=== PATIENT | male | born 1945 | race Caucasian/White ===

== ENCOUNTER → 2021-03-01 | Outpatient (CLI) | payer OTHER ==
[~2021-03-01] MED LIST: ASPIRIN325 PO; CELEBREX 200 M200 M1 PO; CO-ENZYME Q-1010 MG PO; GINKGO BILOBA500 MG PO; LASIX 40 MG TAB40 MG PO; LISINOPRIL20 MG PO; MULTI VITAMIN1 EACH PO; NORVASC5 MG PO; TAMSULOSIN HCL0.4 MG PO; TRIAMTERENE/HCT1 CA1 PO; TURMERIC500 M2 PO; VITAMIN C500 M2 PO; VITAMIN D3250 MC2 PO
[2021-03-01 13:10] LABS: URINE BILIRUBIN NEGATIVE (Negative); URINE BLOOD NEGATIVE (Negative); URINE CLARITY CLEAR; URINE COLOR YELLOW; URINE GLUCOSE-RANDOM* NEGATIVE (Negative); URINE KETONES NEGATIVE (Negative); URINE LEUKOCYTES-REFLEX 1+ (Negative); URINE NITRITE-REFLEX NEGATIVE (Negative); URINE PROTEIN (DIPSTICK) NEGATIVE (Negative); URINE SPECIFIC GRAVITY 1.025 (1.005-1.035); URINE UROBILINOGEN 0.2 E.U./dl (0.2-1.0)
[2021-03-01 13:16] LABS: HEMOGLOBIN 14.8 gm/dL (14.0-18.0); MCH 33.4 pg (26.0-34.0); MCHC 34.5 g/dL (28.0-37.0); MCV 96.8 fL (80.0-100.0); RBC 4.44 mil/uL (4.50-6.00); RDW 14.4 % (10.5-14.5); WBC 10.2 thou/uL (4.0-11.0)
[2021-03-01 13:21] LABS: BACTERIA-REFLEX None Seen /HPF (None Seen); CASTS None Seen /LPF (None Seen); CRYSTALS None Seen /LPF (None Seen); SQUAMOUS None Seen /LPF (0-3); URINE RBC None Seen /HPF (NONE SEEN); URINE WBC-REFLEX 6-15 Few /HPF (0-5)
[2021-03-01 13:23] LABS: ALBUMIN 4.3 g/dL (3.4-5.0); CALCIUM 9.6 mg/dL (8.5-10.1); CREATININE 1.4 mg/dL (0.7-1.3); POTASSIUM 4.5 mmol/L (3.5-5.1); TOTAL BILIRUBIN 0.5 mg/dL (0.2-1.0)
[2021-03-01 13:38] LABS: APTT 26.8 Seconds (24.5-32.8); INR 0.98; PROTIME 10.7 Seconds (10.5-12.1)
--- NOTE | 2021-03-02 07:58 | EKG ---
[place] [address] [facility] [employer] [place] [address] ELECTROCARDIOGRAM REPORT Name: DONALD CRENSHAW [facility]: [id number] Admission: 03/01/21 Attend Phys: Lavelle Chen, Discharge: Date of : 41 Report #: [id number] [facility] Test Date: 2021-03-01 Test Time: 12:48:57 Pat Name: DONALD CRENSHAW Department: Room: Gender: Document Processor: Enrike HOPE : 1945 Requested By: Lavelle Chen Order Number: [id number] MD: Tha Engle Measurements Intervals [place] Rate: 92 P: 28 TX: 178 QRS: -65 QRSD: 105 T: 57 QT: 349 QTc: 432 Interpretive Statements Sinus rhythm Atrial premature complexes RSR' in V1 or V2, right VCD or RVH Inferior infarct, old No previous ECG available for comparison Electronically Signed On 03-02-2021 7:57:44 ROTARY CUTTER OPERATOR by Tha Engle [email or web address] <ELECTRONICALLY SIGNED> By: Tha Engle MD, [facility] 03/02/21 0757 1248 1248 Tha Engle MD, FACC /EPI
== END ==
LOC: PAC 12:07
PROVIDERS: ATTEND Specialist
DX: Z01.812 Encounter for preprocedural laboratory examination (principal); Z01.810 Encounter for preprocedural cardiovascular examination; M48.061 Spinal stenosis, lumbar region without neurogenic claudication; I49.1 Atrial premature depolarization; M71.30 Other bursal cyst, unspecified site

== ENCOUNTER 2021-03-08 07:27 | Inpatient (IN) | payer OTHER ==
[~2021-03-08] VITALS: Ht 175.3 cm; Wt 106.1 kg
[2021-03-08 09:08] VITALS: BP 124/60
[2021-03-08 17:39] VITALS: BP 144/88
[2021-03-08 17:56] VITALS: BP 144/80
[2021-03-08 18:22] VITALS: BP 131/68
--- NOTE | 2021-03-08 18:30 | NUR ---
PT RECEIVED FROM [facility] ROOM AT 1645 ALERT AND MILDLY UNCOMFORTABLE. ASSESSMENT COMPLETED AND PT ORIENTED TO THE UNIT. DAUGHTER AT BEDSIDE. PT ABLE TO STAND W/ HELP USING WALKER TO VOID IN URINAL. PAIN MEDS GIVEN. EATING AND DRINKING WELL. TO SIT UP THIS EVENING.
[2021-03-08 19:40] VITALS: BP 111/69
[2021-03-09 02:06] VITALS: BP 145/82
--- NOTE | 2021-03-09 02:12 | NUR ---
ASSUMED PT CARE AT 1900.PT ALERT AND ORIENTED.PT UP TO THE CHAIR WITH ONE ASSIST/GB AND WALKER.GOOD ENDURANCE NOTED.DRSG TO HIS BACK WITH MIN DRAINAGE.PT REF TO WEAR HIS O2 NASAL CANNULA.PT'S SATURATION AT 96% ON RA.PT ABLE TO MAKE HIS NEEDS KNOWN.CALL LIGHT WITHIN REACH.
[2021-03-09 05:42] LABS: ABSOLUTE NEUTROPHILS 8.1 thou/uL (1.4-8.2); BASOPHILS 0.1 % (0.0-2.0); EOSINOPHILS 0.1 % (0.0-3.0); HEMATOCRIT 32.4 % (42.0-52.0); HEMOGLOBIN 11.6 gm/dL (14.0-18.0); LYMPHOCYTES 7.2 % (24.0-44.0); MCH 34.3 pg (26.0-34.0); MCHC 35.7 g/dL (28.0-37.0); MCV 95.9 fL (80.0-100.0); MONOCYTES 7.8 % (1.0-8.0); PLATELET COUNT 251 thou/uL (150-400); POLYS 84.8 % (36.0-66.0); RBC 3.38 mil/uL (4.50-6.00); RDW 14.1 % (10.5-14.5); WBC 9.5 thou/uL (4.0-11.0)
[2021-03-09 06:29] LABS: CALCIUM 8.9 mg/dL (8.5-10.1); CREATININE 1.4 mg/dL (0.7-1.3); MAGNESIUM 2.1 mg/dL (1.8-2.4); POTASSIUM 4.3 mmol/L (3.5-5.1)
[2021-03-09 08:46] VITALS: BP 118/67
[2021-03-09] MEDS ORDERED: MIRALAX17 GM PO (13:01)
[2021-03-09] MEDS ORDERED: ALLOPURINOL 30300 M1 PO (13:01)
[2021-03-09] MEDS ORDERED: METHOCARBAMOL750 MG PO (13:01)
[2021-03-09 13:14] VITALS: BP 118/67
--- NOTE | 2021-03-09 14:59 | NUR ---
ASSUMED CARE OF PT AT 0700 THIS MORNING. PT WAS ADMITTED AFTER LUMBAR LAMI SURGERY. PT HAS INCISION COVERED BY DRESSING FROM LOWER THORACIC TO SACRAL AREA C/D/I. PT IS A/OX4 AND STATED HE IS READY TO GO HOME. INFORMED THE PT THAT HE WILL NEED TO BE EVALUATED BY PHYS THPY AND BE CLEARED FIRST. ASSESSMENTS NOTED IN CHART AND OTHERWISE UNREMARKABLE. PT IS 1X ASST WITH GB AND WALKER. FALL PRECAUTIONS IN PLACE. CALL LIGHT AND OTHER NEEDS IN REACH. PT WAS CLEARED BY PHYS THPLexus AND HAS BEEN DISCHARGED BY DR. PINTO. MEDS AND TX GIVEN NEEDED AND SCHEDULED. PT WAS TRANSPORTED TO FAMILY CAR THIS AFTERNOON BY TAX REPRESENTATIVE.
== END 2021-03-09 14:02 | disposition home or self-care (01) | DRG 520 ==
LOC: PRE → TBA 07:27 → 4S 07:27 → PRE 08:49 → 4S 16:36
PROVIDERS: Nurse Practitioner; ADMIT Specialist; ATTEND Specialist
DX: M48.061 Spinal stenosis, lumbar region without neurogenic claudication (principal); N18.9 Chronic kidney disease, unspecified; M71.38 Other bursal cyst, other site; I12.9 Hypertensive chronic kidney disease with stage 1 through stage 4 chronic kidney disease, or unspecified chronic kidney disease; M19.90 Unspecified osteoarthritis, unspecified site; N40.0 Benign prostatic hyperplasia without lower urinary tract symptoms; Z96.612 Presence of left artificial shoulder joint; Z96.611 Presence of right artificial shoulder joint; Z20.822 Contact with and (suspected) exposure to COVID-19; E78.00 Pure hypercholesterolemia, unspecified; Z88.8 Allergy status to other drugs, medicaments and biological substances; Z90.49 Acquired absence of other specified parts of digestive tract; Z98.42 Cataract extraction status, left eye; Z98.41 Cataract extraction status, right eye
CPT/HCPCS: 10102; 50010; 50101; 50402; 51751; 56525; 56528; 56532; 57103; 58457; 58567; 58744; 62110; 62900; 70005